=== PATIENT | male | born 1950 | race Caucasian/White ===

== ENCOUNTER 2017-07-02 11:46 | Emergency (ER) | payer MEDICARE ==
[2017-07-02 11:46] VITALS: BMI 29.0
[2017-07-02 12:06] VITALS: O2SAT 100
[2017-07-02] MEDS ORDERED: Sodium Chloride 0.9% 1,000 ML IV ONE (12:25)
--- NOTE | 2017-07-02 12:26 | C.PDOC ---
History Of Present Illness 67 y/o male, PMHx of HTN, CHF, seizures, and IDDM, brought in by ambulance for witnessed seizure at home. reports she found him twitching in the mouth while sitting in front of the computer at home, and patient collapsed on the floor. Patient was evaluated in this ER two weeks ago for seizure, with negative CT and bloodwork performed, and was discharged home. notes that patient has not had follow up since last ER visit, with no changes in medications, and he has been compliant with current medications. On arrival patient is in post-ictal state, slightly confuse, no incontinence noted. Otherwise, Patient denies any active complaints on arrival. Time Seen by Provider: 07/02/17 11:52 Chief Complaint (Nursing): Seizure History Per: Patient, Family () History/Exam Limitations: no limitations Recent Seizure Activity Began: Just Before Arrival Length Of Seizures (Duration): Unknown Quality Of Seizure: Generalized Post-ictal Period: Yes Past Medical History Reviewed: Historical Data, Nursing Documentation, Vital Signs Vital Signs: Last Vital Signs Temp 98.1 F 07/02/17 11:48 Pulse 85 07/02/17 13:33 Resp 16 07/02/17 13:33 BP 162/78 H 07/02/17 13:33 Pulse Ox 100 07/02/17 13:45 - Medical History PMH: Asthma, CAD, CHF (dec 2014), Diabetes, HTN, Hypercholesterolemia, Seizures (no meds) Surgical History: CABG - [facility] CORONAR ARTERIOGR-2 CATH (10/30/14) LEFT HEART CARDIAC CATH (10/30/14) LT HEART ANGIOCARDIOGRAM (10/30/14) Family History: States: Unknown Family Hx - Social History Hx Tobacco Use: No Hx Alcohol Use: No Hx Substance Use: No - Immunization History Hx Tetanus Toxoid Vaccination: No Hx Influenza Vaccination: No Hx Pneumococcal Vaccination: Yes Review Of Systems Except As Marked, All Systems Reviewed And Found Negative. Constitutional: Negative for: Fever, Chills Eyes: Negative for: Pain Cardiovascular: Negative for: Chest Pain, Light Headedness Respiratory: Negative for: Cough, Shortness of Breath Gastrointestinal: Negative for: Nausea, Vomiting, Abdominal Pain Genitourinary: Negative for: Dysuria Neurological: Positive for: Seizures. Negative for: Weakness, Numbness Physical Exam - Physical Exam Appears: Well, Non-toxic, No Acute Distress Skin: Normal Color, Warm, Dry Head: Atraumatic, Normacephalic Eye(s): bilateral: PERRL Ear(s): Bilateral: Normal Nose: Normal, No Flaring, No Discharge Oral Mucosa: Moist Tongue: Normal Appearing, No Bite Lips: Normal Appearing Throat: No Erythema, No Exudate, No Drooling Neck: Normal ROM, No Midline Cervical Tenderness, No Paracervical Tenderness, No Step Off Deformity, Supple Chest: Symmetrical, No Deformity, No Tenderness Cardiovascular: Rhythm Regular Respiratory: No Decreased Breath Sounds, No Accessory Muscle Use, No Stridor, No Wheezing Gastrointestinal/Abdominal: Soft, No Tenderness, No Guarding, No Rebound Male Genital: No Testicular Tenderness Extremity: Normal ROM, No Pedal Edema, No Deformity Neurological/Psych: Oriented x3, Normal Speech, Normal Cognition, Normal Motor, Normal Sensation, Normal Reflexes ED Course And Treatment - Laboratory Results Result Diagrams: 07/02/17 12:38 07/02/17 12:38 Lab Interpretation: No Acute Changes ECG: Interpreted By Me, Viewed By Me ECG Rhythm: Sinus Rhythm Interpretation Of ECG: SR@92/min, NAD, Q wave inferior leads, no acute T wave or ST-T changes. O2 Sat by Pulse Oximetry: 100 (RA) Pulse Ox Interpretation: Normal - CT Scan/US CT head w/o contrast Other Rad Studies (CT/US): Radiology Report Reviewed CT/US Interpretation: Accession No. : [id number]. Patient Name / ID : SALOMÓN ADORNO / [id number]. Exam Date : 07/02/2017 13:01:17 ( Approved ). Study Comment : Sex / Age : M / 67Y. Creator : Dinorah Lemus MD. Dictator : Informatics Developer : [employer] Worker Helper : Dinorah Lemus MD. Approver2 : Report Date : 07/02/2017 13:38:07. My Comment : . PROCEDURE: CT HEAD WITHOUT CONTRAST. HISTORY: seizure. COMPARISON: Noncontrast head CT performed 06/19/16 and 12/18/14. TECHNIQUE: Axial computed tomography images were obtained through the head/brain without intravenous contrast. Radiation dose: Total exam DLP = 925.16 mGy-cm. This CT exam was performed using one or more of the following dose reduction techniques: Automated exposure control, adjustment of the mA and/or kV according to patient size, and/or use of iterative reconstruction technique. FINDINGS: HEMORRHAGE: No intracranial hemorrhage. BRAIN: No mass effect or edema. Re-identified focal defect or encephalomalacia involving the cortex of the right frontal lobe extending to the white matter. Scattered white matter hypodensities, which are nonspecific, but often seen with chronic microvascular ischemic disease. Please note that MRI with diffusion imaging is more sensitive in the detection of acute ischemic event. VENTRICLES: No hydrocephalus. CALVARIUM: Unremarkable. PARANASAL SINUSES: Unremarkable as visualized. No significant inflammatory changes. MASTOID AIR CELLS: Unremarkable as visualized. No inflammatory changes. OTHER FINDINGS: None. IMPRESSION: Re-identified focal defect or encephalomalacia involving the cortex of the right frontal lobe extending to the white matter. Scattered nonspecific white matter hypodensities. Progress Note: At 13:10, pt reports 'feels anxious" and Ativan given. At 13:40 , pt apears AAO#3, smilling, reports ' feels much better". Afebrile, hemodynamicaly stable. Non-toxic. Tolerate Po well in ED. neck: Supple, (-) meningeal sign. ENT: uvula midline, no acute findings. Lungs: CTA B/L, BS equal B/L. CVS: (+)S1S2, reg. Abd: benign. Neurologicaly intact. case discussed with pt's primary provider DOM Garcia from office. Pt is new to practice, confirmed medication list, pt is on keppra 500 mg BID since last seen in office in 12/2016. No Neurology F/U was recorded or provided. As per , " dont remember who is neurologist and when last time was seen". Case discussed with Neurology on-call Kendell Carter and increase in Keppra dose to 500 mg q8h recommend with outpt f/u now. Case discussed and blood work/ imaging results review with , no acute abnormalities noted, appears at baseline. Dr Watters agrees on discharge with outpt f/u now. Results review with pt and , ref. to F/u with PMD and Neurology in 1-2 days for re-eavl. return to ED if any worsening or new changes. Disposition Counseled Patient/Family Regarding: Studies Performed, Diagnosis, Need For Followup, Rx Given - Disposition Referrals: Cornado Vargas MD [Staff Provider] - Disposition: HOME/ ROUTINE Disposition Time: 13:42 Condition: STABLE Additional Instructions: INCREASE DOSE OF KEPPRA TO 4 TIMES DAILY FOLLOW UP WITH PMD, NEUROLOGY IN 1-2 DAYS FOR RE-EVALUATION. RETURN TO ED IF ANY WORSENING OR NEW CHANGES. Prescriptions: levETIRAcetam [Keppra] 500 mg PO Q8 #30 tab Lisinopril [Zestril] 5 mg PO DAILY #14 tablet Simvastatin [Zocor] 40 mg PO HS #14 tablet Instructions: Epilepsy (ED), Medicine Refill (ED) Forms: [email or web address] (Pashto) Print Language: LUXEMBOURGISH - Clinical Impression Clinical Impression: Seizure, Hypertension, Hyperglycemia, Medication refill - PA / MOTORCYCLE ASSEMBLER / Resident Statement MD/DO has reviewed & agrees with the documentation as recorded. - Scribe Statement The provider has reviewed the documentation as recorded by the Allyibdaron Valdes All medical record entries made by the Deepti were at my direction and personally dictated by me. I have reviewed the chart and agree that the record accurately reflects my personal performance of the history, physical exam, medical decision making, and the department course for this patient. I have also personally directed, reviewed, and agree with the discharge instructions and disposition.
[2017-07-02] MEDS ORDERED: Sodium Chloride 0.9% 1,000 ML ONE (12:36)
[2017-07-02 12:51] LABS: BASO % 0.6 % (0.0-2.0); EOS # 0.2 K/uL (0.0-0.7); HEMATOCRIT 32.7 % (35.0-51.0); LYMPH # 1.7 K/uL (1.0-4.3); LYMPH % 19.5 % (20.0-40.0); MEAN CORPUSCULAR HEMOGLOBIN 30.8 pg (27.0-31.0); MEAN CORPUSCULAR HGB CONC 34.1 g/dL (33.0-37.0); MEAN PLATELET VOLUME 10.4 fL (7.2-11.7); MONO # 0.5 K/uL (0.0-0.8); MONO % 5.5 % (0.0-10.0); RED CELL DISTRIBUTION WIDTH 15.6 % (11.5-14.5); WHITE BLOOD COUNT 8.7 K/uL (4.8-10.8)
[2017-07-02 12:54] LABS: MEAN CELL VOLUME 90.3 fL (80.0-94.0)
[2017-07-02 12:59] LABS: CHLORIDE 105 mmol/L (98-107); POTASSIUM 4.4 mmol/L (3.6-5.2); SODIUM 144 mmol/L (132-148)
[2017-07-02 13:01] LABS: ALB/GLOB RATIO 1.4 (1.0-2.1); ALKALINE PHOSPHATASE 52 U/L (38-126); AST/SGOT 22 U/L (17-59); BILIRUBIN,TOTAL 0.4 mg/dL (0.2-1.3); CARBON DIOXIDE 19 mmol/L (22-30); GFR AFRICAN-AMERICAN > 60; TOTAL PROTEIN 6.8 g/dL (6.3-8.3)
[2017-07-02 13:02] LABS: ALT/SGPT 25 U/L (21-72); BLOOD UREA NITROGEN 13 mg/dL (9-20); CALCIUM 9.2 mg/dl (8.6-10.4); GLUCOSE,RANDOM 187 mg/dL (75-110)
--- NOTE | 2017-07-02 13:40 | CT ---
PROCEDURE: CT HEAD WITHOUT CONTRAST. HISTORY: seizure COMPARISON: Noncontrast head CT performed 06/19/16 and 12/18/14 TECHNIQUE: Axial computed tomography images were obtained through the head/brain without intravenous contrast. Radiation dose: Total exam DLP = 925.16 mGy-cm. This CT exam was performed using one or more of the following dose reduction techniques: Automated exposure control, adjustment of the mA and/or kV according to patient size, and/or use of iterative reconstruction technique. FINDINGS: HEMORRHAGE: No intracranial hemorrhage. BRAIN: No mass effect or edema. Re-identified focal defect or encephalomalacia involving the cortex of the right frontal lobe extending to the white matter. Scattered white matter hypodensities, which are nonspecific, but often seen with chronic microvascular ischemic disease. Please note that MRI with diffusion imaging is more sensitive in the detection of acute ischemic event. VENTRICLES: No hydrocephalus. CALVARIUM: Unremarkable. PARANASAL SINUSES: Unremarkable as visualized. No significant inflammatory changes. MASTOID AIR CELLS: Unremarkable as visualized. No inflammatory changes. OTHER FINDINGS: None. IMPRESSION: Re-identified focal defect or encephalomalacia involving the cortex of the right frontal lobe extending to the white matter. Scattered nonspecific white matter hypodensities.
[2017-07-02 14:33] VITALS: BP 158/80; PULSE 88; RESP 20; TEMP 98.3
--- NOTE | 2017-07-03 12:38 | CARD ---
APPROVED REPORT EKG Measurement Heart [id number] <Conclusion> Normal sinus rhythm Possible Left atrial enlargement Inferior infarct, age undetermined Cannot rule out Anterior infarct, age undetermined Abnormal ECG
== END 2017-07-02 14:43 | disposition home or self-care (01) ==
LOC: C.ER 11:46
DX: G40.909 Epilepsy, unspecified, not intractable, without status epilepticus (principal); I10 Essential (primary) hypertension; E11.65 Type 2 diabetes mellitus with hyperglycemia; Z76.0 Encounter for issue of repeat prescription
CPT/HCPCS: 70450; 80053; 82948; 85025; 93005; 96374; 99285; J2060